=== PATIENT | male | born 1960 | race Caucasian/White ===

== ENCOUNTER 2021-01-11 14:45 | Outpatient (CLI) | payer OTHER ==
[2021-01-11 16:23] LABS: Anion Gap 14 mmol/L (10-20); BUN (Urea Nitrogen) 11 mg/dL (8.4-25.7); Calc. Creatinine Clearance 0 mL/min (70-130); Calcium 9.5 mg/dL (7.8-10.44); Carbon Dioxide 24 mmol/L (22-29); Chloride 107 mmol/L (98-107); Glucose 99 mg/dL (70-105); Sodium 141 mmol/L (136-145)
[2021-01-11 16:25] LABS: #Basophils 0.1 10x3/uL (0.0-0.2); #Eosinphils 1.1 10x3/uL (0.0-0.5); #Monocytes 0.6 10x3/uL (0.0-1.1); #Neutrophils 5.3 10x3/uL (1.5-8.4); %Basophils 0.8 % (0.0-2.0); %Eosinophils 12.1 % (0.0-6.0); %Lymphocytes 21.8 % (18.0-47.0); %Monocytes 6.2 % (0.0-10.0); %Neutrophils 58.7 % (40.0-75.0); Mean Corpuscular Hemoglobin 28.5 pg (27.0-33.0); Mean Corpuscular Volume 83.8 fl (81.2-95.1); Mean Platelet Volume 10.5 fl (7.4-10.4); Platelet Count 220 10x3/uL (150-450); Red Blood Cell (RBC) Count 5.61 10x6/uL (4.32-5.72)
[2021-01-12 01:32] LABS: SARS-CoV-2 PCR by NAA Not Detected (NotDetected)
== END 2021-01-11 14:46 | disposition home or self-care (01) ==
LOC: LABBT 14:45
PROVIDERS: ATTEND Internal Medicine Cardiovascular Disease
DX: Z01.818 Encounter for other preprocedural examination (principal); Z20.822 Contact with and (suspected) exposure to COVID-19
CPT/HCPCS: 80048; 85025; 87635; 93005; 93010; U0003; U0005

== ENCOUNTER 2021-01-14 09:52 | Day surgery (SDC) | payer OTHER ==
[2021-01-13 15:42] VITALS: BMI 28.5
[2021-01-14] MEDS ORDERED: PROPOFOL 20 ML ONE ×2 (12:03→12:14)
== END 2021-01-14 14:04 | disposition home or self-care (01) ==
LOC: CCL 09:52
PROVIDERS: ATTEND Internal Medicine Cardiovascular Disease
PROC: B24BZZ4 Ultrasonography of Heart with Aorta, Transesophageal (ICD-10-PCS; principal; 2021-01-14)
DX: I08.8 Other rheumatic multiple valve diseases (principal); I77.89 Other specified disorders of arteries and arterioles; E78.00 Pure hypercholesterolemia, unspecified; Z79.899 Other long term (current) drug therapy
CPT/HCPCS: 93312; J2704